=== PATIENT | male | born 2005 | race African-American/Black ===

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

== ENCOUNTER 2023-03-10 21:14 | Emergency (ER) | payer OTHER ==
[2023-03-10 21:20] VITALS: BP 117/66; PULSE 61; RESP 18; TEMP 98; BMI 23.7
== END 2023-03-11 00:32 | disposition home or self-care (01) ==
LOC: JERFT 21:14
DX: S61.421A Laceration with foreign body of right hand, initial encounter (principal); W25.XXXA Contact with sharp glass, initial encounter
CPT/HCPCS: 73130-TC-RT-FY; 99283-25